=== PATIENT | male | born 1940 | race Caucasian/White ===

== ENCOUNTER 2023-08-14 16:11 | Emergency (ER) | payer OTHER, SELFPAY ==
[2023-08-14 16:13] VITALS: BP 164/99
[2023-08-14 17:14] LABS: % Basophils 0.5 % (0-2); % Eosinophils 2.6 % (0-6); % Immature Granulocytes 0.2 % (0-0.5); % Lymphocytes 18.9 % (20.5-51.1); % Monocytes 13.4 % (1.7-9.3); % Neutrophils 64.4 % (42.2-75.2); Absolute Eosinophils 0.2 10^3/uL (0-0.7); Absolute Lymphocytes 1.1 10^3/uL (1.2-3.4); Absolute Monocytes 0.8 10^3/uL (0.1-0.6); Absolute Neutrophils 3.8 10^3/uL (1.4-6.5); Hematocrit 42.5 % (39.0-52.0); Hemoglobin 14.8 g/dL (13.0-18.0); Mean Corp Hgb Conc. 34.8 g/dL (33.0-37.0); Mean Corpuscular Hgb 31.2 pg (27.0-31.0); Mean Corpuscular Volume 89.7 fL (80.0-94.0); Mean Platelet Volume 9.2 fL (7.4-10.4); Nucleated Red Blood Cells % 0 % (-); Platelet Count 285 10^3/uL (130-400); Red Blood Cell Count 4.74 10^6/uL (4.70-6.10); Red Cell Dist. Width 11.9 % (11.5-14.5); White Blood Cell Count 5.9 10^3/uL (4.8-10.8)
[2023-08-14 17:18] VITALS: BMI 28.1
[2023-08-14 17:26] LABS: ALT (SGPT) 20 U/L (0-50); AST (SGOT) 29 U/L (17-59); Albumin 4.3 g/dl (3.5-5.0); Alkaline Phosphatase 71 U/L (38-126); Blood Urea Nitrogen 16 mg/dl (9-20); Calcium 9.2 mg/dl (8.4-10.2); Carbon Dioxide 25 mmol/L (22-30); Chloride 99 mmol/L (98-107); Estimated Creatinine Clearance 47 ml/min; Glucose 107 mg/dl (70-99); Lipase 76 U/L (23-300); Potassium 4.6 mmol/L (3.5-5.1); Sodium 131 mmol/L (135-145); Total Bilirubin 0.7 mg/dl (0.2-1.3); Total Protein 6.8 g/dl (6.3-8.2); eGFR > 60.00
[2023-08-14 18:00] VITALS: BP 169/92
[2023-08-14 18:06] VITALS: BP 161/78
--- NOTE | 2023-08-14 18:33 | ED.GENMED ---
History of Present Illness
General
Chief Complaint: Abdominal Pain
Source: patient
Exam Limitations: none
Time Seen by Provider: 08/14/23 18:16
Travel History
Have you had any contact with someone who has COVID-19?: No
Do you have any symptoms of coronavirus? Fever > 100 degrees, chills, cough, shortness of breath, sore throat, loss of taste or smell, muscle aches, or headache?: No
History of Present Illness
History of Present Illness:
See MDM
Past History
Past History
ED Past Medical History: HTN and Other (Chronic kidney disease)
Social History
Tobacco: Non-smoker
Alcohol: Occasional
Personal:
Family History
Family History: Negative Diabetes, Hypertension or CAD
Phy Exam
Physical Exam
Physical Exam:
See MDM
Course
Orders/Labs/Results
Orders:
Orders
08/14/23 16:20
Complete Blood Count/With Diff Urgent
Comprehensive Metabolic Panel Urgent
Lipase Urgent
08/14/23 18:30
Ketorolac [Toradol] 30 mg IV NOW STA
08/14/23 18:32
CT Abd/pelvis W Iv Cont Urgent
Comment:
Reason For Exam: Mid abd pain after eating
Abnormal Lab Results
08/14/23
16:20
MCH 31.2 H pg
(27.0-31.0)
Absolute Lymphs (auto) 1.1 L 10^3/uL
(1.2-3.4)
Absolute Monos (auto) 0.8 H 10^3/uL
(0.1-0.6)
Lymphocytes % 18.9 L %
(20.5-51.1)
Monocytes % 13.4 H %
(1.7-9.3)
Sodium 131 L mmol/L
(135-145)
Glucose 107 H mg/dl
(70-99)
08/14/23 16:20
08/14/23 16:20
Vital Signs
Initial and Last Documented VS:
Initial Vital Signs
Temp Pulse Resp BP Pulse Ox
98.1 F 92 16 164/99 98
08/14/23 16:13 08/14/23 16:13 08/14/23 16:13 08/14/23 16:13 08/14/23 16:13
Last Documented Vital Signs
Temp Pulse Resp BP Pulse Ox
98.1 F 92 18 157/77 95
08/14/23 16:13 08/14/23 19:30 08/14/23 19:30 08/14/23 19:23 08/14/23 19:30
MDM/Problems Addressed
Differential Diagnosis Includes:
HPI and MDM Narrative:
82-year-old male presenting with mid abdominal pain. He noticed it since Tuesday. Symptoms do appear to worsen every time he eats. He complains of intermittent abdominal cramping. He denies any concern for UTI or constipation.
On exam, abdomen is soft and benign. Given his history, will obtain CT
Physical exam
General: Well appearing and non-toxic
HEENT: protecting airway. Mildly dry mucous
Neck: appears supple
CV: No evidence of cyanosis
Resp: No accessory muscle use
Abd: Non-distended. No significant tenderness on exam
Extremities: No deformities
Neuro: alert
Psych: Normal affect
Skin: Intact
Problems Addressed including Acute and Chronic Conditions affecting care:
1. Postprandial abdominal pain
Acuity: acute
Prognosis: stable
Details: Will obtain CT looking for evidence of constipation versus colitis versus diverticulitis. Will give dose of Toradol
Given how well-appearing he is and there is no reason to suspect pain out of proportion of exam, doubt mesenteric ischemia.
Updates
CT negative for acute pathology. We did discuss gallstones but no evidence of acute cholecystitis. He has diverticulosis without diverticulitis. Discussed talking to his general practitioner and discussed outpatient follow-up with surgery as this
could be symptomatic cholelithiasis
Differential Diagnosis (but not limited to): Constipation, diverticulitis, colitis
Testing considered: Right upper quadrant ultrasound but no significant tenderness noted
Drug therapy (if applicable): OTC meds, please see d/c instruction regarding Rx drugs
Amount and/or Complexity of Data Reviewed
Clinical info obtained from: Patient
External data reviewed: N/A
Labs I independently reviewed (but not limited to): Mild hyponatremia likely in the setting of dehydration
Radiology: The CT scan was personally and independently reviewed. In addition, official CT report reviewed.
Pulse Ox: not hypoxic
EKG independently reviewed: N/A
Pier Worker: N/A
Critical Care: N/A
Risk of Complication:
Social Determinants of health: Good social support
Discussed with other providers: N/A
Escalation of Care includes Admit/Obs: After being observed in the Emergency Department, pt stable for discharge.
Occasional wrong word or 'sound a like' substitutions may have occurred due to the inherent limitations of voice recognition software. Read the chart carefully and recognize, using context, where substitutions have occurred.
*Critical Care Note
Total Time (30-74mins, 75-104mins- exclusive of procedures): Not Applicable
ED Attending Note
-
Portions of this chart may have been created with voice recognition software.� Occasional wrong word or��sound alike� substitutions may have occurred due to the inherent limitations of voice recognition software.
Discharge Plan
Departure
Patient Disposition: Home (Routine Discharge)
Date of Disposition: 08/14/23
Time of Disposition: 20:02
Patient with high blood pressure during this ER visit?: Yes
Discharge Problem:
Symptomatic cholelithiasis
Instructions: Gallstones (DC)
Prescriptions:
No Action
atorvastatin 10 MG tablet
10 mg PO HS
mometasone [Nasonex] 17 GM spray,non-aerosol
2 spray intranasal HS
lisinopril [Zestril] 5 MG tablet
5 mg PO HS
omeprazole magnesium 20 MG capsule,delayed release(DR/EC)
20 mg PO DAILY
tamsulosin 0.4 MG capsule
0.4 mg PO QPM
lisinopril 2.5 MG tablet
2.5 mg PO DAILY
finasteride 5 MG tablet
5 mg PO NOON
omega 6-xuv-kxg-fish oil [Fish Oil] 1 EACH capsule
1 ea PO Q48H
Men 50 Plus Multivitamin 1 EACH tablet
1 ea PO DAILY
Calcium Carb/Mag Ox/Zinc Sulf [Mbf-Zbr-Soud 334-134-5 Mg Tab] 1 EACH Tablet
1 ea PO BID
Afrin Nasal Mcdonald:
1 dose intranasal PRN PRN (Reason: nasal congestion)
Referrals:
Alina Sanchez MD [Family Provider] -
Javier Diop MD [Active] -
Activity Restrictions/Additional Instructions:
Please return for any worsening symptoms.
You may return at any time if you have further concerns.
Please follow up with your doctor at the first available appointment, preferably this week.
Your symptoms could be related to your gallbladder. Please make an appointment with the surgeon.
Thank you for choosing [facility].
Interventions
Interventions:
*Risk Screen - Suicide Last Done: 08/14/23 16:13
*General Assessment Last Done: 08/14/23 16:13
*Neglect/Abuse Screening Last Done: 08/14/23 16:13
ED- Fall Risk Assessment Last Done: 08/14/23 17:18
*ED COVID-19 Vaccine History Last Done: 08/14/23 16:13
ER-Psddgy-Tphyegdgwr Assessment Last Done: 08/14/23 17:18
Discharge Date and Time
Print Language: [email or web address]
[2023-08-14] MEDS: TORADOL 30 MG IV (18:49)
[2023-08-14 19:23] VITALS: BP 157/77
[2023-08-14 20:00] VITALS: BP 151/81
[2023-08-14] MEDS: TORADOL 15 MG IV (20:07)
== END 2023-08-14 20:22 | disposition home or self-care (01) ==
LOC: EMR 16:11
PROVIDERS: EMERGENCY PHYSICIAN Student in an Organized Health Care Education/Training Program; FAMILY PHYSICIAN Family Medicine
DX: K80.20 Calculus of gallbladder without cholecystitis without obstruction (principal); I12.9 Hypertensive chronic kidney disease with stage 1 through stage 4 chronic kidney disease, or unspecified chronic kidney disease; N18.9 Chronic kidney disease, unspecified
CPT/HCPCS: 99284; 96374; 96376; 74177; 80053; 83690; 85025; Q9967